=== PATIENT | male | born 1995 | race Caucasian/White ===

== ENCOUNTER 2018-09-21 13:30 | Emergency (ER) | payer SELFPAY ==
[2018-09-21 15:40] LABS: ADD MAN DIFF? NO
[2018-09-21] MEDS: DIPHENHYDRAMINE 50 MG INJ IV (15:40)
[2018-09-21] MEDS: METOCLOPRAMIDE 10 MG INJ IV (15:40)
[2018-09-21] MEDS: KETOROLAC 30 MG INJ IV (15:40)
[2018-09-21] MEDS: SOD CHLORIDE 0.9% 1,000 ML IV (15:41)
[2018-09-21 15:43] LABS: BASOPHILS % 0.5 % (0.0-2.0); EOSINOPHILS # 0.6 10^3/ul (0.0-0.5); EOSINOPHILS % 7.1 % (0.0-7.0); HEMATOCRIT 45.6 % (42.0-52.0); HEMOGLOBIN 15.6 g/dl (14.0-18.0); LYMPHOCYTES # 2.8 10^3/ul (0.8-2.9); LYMPHOCYTES % 36.4 % (15.0-51.0); MEAN CORPUSCULAR HEMOGLOBIN 28.9 pg (29.0-33.0); MEAN CORPUSCULAR HGB CONC 34.2 g/dl (32.0-37.0); MEAN CORPUSCULAR VOLUME 84.6 fl (82.0-101.0); MEAN PLATELET VOLUME 10.2 fl (7.4-10.4); MONOCYTE # 0.7 10^3/ul (0.3-0.9); MONOCYTES % 8.9 % (0.0-11.0); NEUTROPHIL # 3.7 10^3/ul (1.6-7.5); PLATELET COUNT 310 10^3/UL (140-415); RED BLOOD COUNT 5.39 10^6/ul (4.70-6.10); RED CELL DISTRIBUTION WIDTH 12.3 % (11.5-14.5)
[2018-09-21 15:43] LABS: WHITE BLOOD COUNT 7.8 10^3/ul (4.8-10.8)
[2018-09-21 16:02] LABS: INR 0.99; PROTIME 13.2 Sec (11.9-14.9)
[2018-09-21 16:03] LABS: PARTIAL THROMBOPLASTIN TIME 29.8 Sec (23.0-35.0)
[2018-09-21 16:07] LABS: ANION GAP 12 (5-13); BLOOD UREA NITROGEN 17 mg/dl (7-20); CALCIUM 10.1 mg/dl (8.4-10.2); CARBON DIOXIDE 27 mmol/L (21-31); CHLORIDE 104 mmol/L (97-110); CREATININE 0.85 mg/dl (0.61-1.24); Estimated GFR > 60 mL/min (>60); GLUCOSE 93 mg/dl (70-220); POTASSIUM 4.2 mmol/L (3.5-5.1); SODIUM 143 mmol/L (135-144)
== END 2018-09-21 16:28 | disposition home or self-care (01) ==
LOC: FTE 13:30
DX: R51 Headache (principal); M79.602 Pain in left arm
CPT/HCPCS: 36415; 70450; 80048; 85025; 85610; 85730; 96361; 96374; 96375; 99285-25